=== PATIENT | female | born 1950 | race Caucasian/White ===

== ENCOUNTER 2017-02-23 06:06 | Day surgery (SDC) | payer OTHER, BC, MEDICARE ==
[2017-02-23] MEDS ORDERED: LIDOCAINE 4% (MPF) 5 ML INJ (06:53)
[2017-02-23] MEDS ORDERED: CEFAZOLIN 1 GM INJ (06:53)
[2017-02-23] MEDS ORDERED: EPINEPHrine 1 MG INJ (06:54)
[2017-02-23] MEDS ORDERED: GENTAMICIN 80 MG INJ (06:54)
[2017-02-23] MEDS ORDERED: DEXAMETHASONE 4 MG/ML 1 ML INJ (06:54)
[2017-02-23] MEDS ORDERED: CARBACHOL 0.01% 1.5 ML OPH INJ (06:54)
[2017-02-23] MEDS ORDERED: SOD CHLORIDE 0.9% 1,000 ML IV (07:30)
[2017-02-23] MEDS ORDERED: DICLOFENAC 0.1% 2.5 ML OPH OPER (07:30)
[2017-02-23] MEDS: TROPICAMIDE 1% 3 ML OPH OPER (07:48)
[2017-02-23] MEDS: MOXIFLOXACIN 0.5% 3 ML OPH OPER (07:48)
[2017-02-23] MEDS: CYCLOPENTOLATE/PHENYLEPH 2 ML OPH OPER (07:48)
[2017-02-23] MEDS: hydrALAzine 20 MG INJ IV ×3 (07:58→08:36)
[2017-02-23] MEDS: BROMFENAC SODIUM 1.7 ML OPH DROP OPER (08:00)
[2017-02-23] MEDS: DEXAMETHASONE 4 MG/ML 1 ML INJ INJ (10:15)
[2017-02-23] MEDS: CARBACHOL 0.01% 1.5 ML OPH INJ IO (10:15)
[2017-02-23] MEDS: CEFAZOLIN 1 GM INJ INJ (10:15)
== END 2017-02-23 11:54 | disposition home or self-care (01) ==
LOC: SDS 06:06
DX: H25.12 Age-related nuclear cataract, left eye (principal); E11.9 Type 2 diabetes mellitus without complications; I10 Essential (primary) hypertension; E66.9 Obesity, unspecified; Z68.28 Body mass index [BMI] 28.0-28.9, adult
CPT/HCPCS: 66984; 82962

== ENCOUNTER 2018-07-16 09:52 | Inpatient (IN) | payer OTHER, BC ==
[2018-07-16 11:01] LABS: ADD MAN DIFF? NO
[2018-07-16 11:04] LABS: WHITE BLOOD COUNT 10.8 10^3/ul (4.8-10.8)
[2018-07-16 11:04] LABS: BASOPHIL # 0.2 10^3/ul (0.0-0.1); BASOPHILS % 1.5 % (0.0-2.0); EOSINOPHILS % 18.2 % (0.0-7.0); HEMATOCRIT 45.2 % (37.0-47.0); HEMOGLOBIN 14.4 g/dl (12.0-16.0); LYMPHOCYTES # 2.6 10^3/ul (0.8-2.9); LYMPHOCYTES % 23.5 % (15.0-51.0); MEAN CORPUSCULAR HEMOGLOBIN 27.1 pg (29.0-33.0); MEAN CORPUSCULAR HGB CONC 31.9 g/dl (32.0-37.0); MEAN PLATELET VOLUME 12.1 fl (7.4-10.4); MONOCYTE # 0.8 10^3/ul (0.3-0.9); MONOCYTES % 7.7 % (0.0-11.0); NEUTROPHIL # 5.3 10^3/ul (1.6-7.5); NEUTROPHILS % 48.8 % (39.0-77.0); PLATELET COUNT 247 10^3/UL (140-415); RED BLOOD COUNT 5.32 10^6/ul (4.20-5.40); RED CELL DISTRIBUTION WIDTH 13.1 % (11.5-14.5)
[2018-07-16 11:09] LABS: ALANINE AMINOTRANSFERASE 26 IU/L (13-69); ALBUMIN 4.6 g/dl (3.3-4.9); ALBUMIN/GLOBULIN RATIO 1.35; ALKALINE PHOSPHATASE 105 IU/L (42-121); AMYLASE 68 U/L (11-123); ANION GAP 11 (5-13); ASPARTATE AMINO TRANSFERASE 36 IU/L (15-46); BILIRUBIN,INDIRECT 0.6 mg/dl (0-1.1); BILIRUBIN,TOTAL 0.6 mg/dl (0.2-1.3); BLOOD UREA NITROGEN 14 mg/dl (7-20); CALCIUM 9.4 mg/dl (8.4-10.2); CARBON DIOXIDE 28 mmol/L (21-31); CHLORIDE 104 mmol/L (97-110); CREATININE 0.48 mg/dl (0.44-1.00); Estimated GFR > 60 mL/min (>60); GLUCOSE 181 mg/dl (70-220); LIPASE 83 U/L (23-300); POTASSIUM 4.2 mmol/L (3.5-5.1); SODIUM 143 mmol/L (135-144)
[2018-07-16 11:20] LABS: TROPONIN-I < 0.012 ng/ml (0.000-0.120)
[2018-07-16] MEDS: ONDANSETRON 4 MG INJ IV (11:21)
[2018-07-16] MEDS: morphine 4 MG/ML VIAL IV (11:21)
[2018-07-16] MEDS: LABETALOL HCL 20MG INJ IV (11:22)
[2018-07-16 11:28] LABS: INR 1.05; PROTIME 13.8 Sec (11.9-14.9); PT RATIO 1.1
[2018-07-16 13:25] LABS: ADD UMIC YES; UR ASCORBIC ACID NEGATIVE (NEGATIVE); UR BILIRUBIN (Dip) NEGATIVE (NEGATIVE); UR BLOOD (Dip) NEGATIVE (NEGATIVE); UR CLARITY CLEAR (CLEAR); UR COLOR YELLOW (YELLOW); UR GLUCOSE (Dip) NEGATIVE (NEGATIVE); UR KETONES (Dip) NEGATIVE (NEGATIVE); UR LEUKOCYTE ESTERASE (Dip) TRACE Leu/ul (NEGATIVE); UR NITRITE (Dip) NEGATIVE (NEGATIVE); UR RBC 0 /HPF (0-5); UR SPECIFIC GRAVITY (Dip) 1.011 (1.003-1.030); UR SQUAMOUS EPITHELIAL CELL FEW /HPF (FEW); UR TOTAL PROTEIN (Dip) NEGATIVE (NEGATIVE); UR UROBILINOGEN (Dip) NEGATIVE (NEGATIVE); UR WBC 1 /HPF (0-5)
[2018-07-16] MEDS ORDERED: ONDANSETRON 4 MG INJ IV ×2 (14:30→15:30)
[2018-07-16] MEDS ORDERED: ACETAMINOPHEN 325 MG TAB PO (14:30)
[2018-07-16] MEDS ORDERED: NACL 0.9% 3 ML SYG IV (15:30)
[2018-07-16] MEDS ORDERED: GLUCOSE GEL 15 GRAM TUBE BUCCAL (16:00)
[2018-07-16] MEDS ORDERED: DEXTROSE 50% 50 ML SYRINGE IV ×2 (16:00)
[2018-07-16] MEDS ORDERED: GLUCAGON 1 MG INJ IM (16:00)
[2018-07-16] MEDS ORDERED: GLUCOSE GEL 15 GRAM TUBE PO ×2 (16:00)
[2018-07-16 16:22] LABS: FREE T4 (FREE THYROXINE) 1.06 ng/dl (0.78-2.44)
[2018-07-16] MEDS: hydrALAzine 20 MG INJ IV ×2 (17:00→22:31)
[2018-07-16 18:13] LABS: AMPHETAMINE/METHAMPHETAMINE Negative (NEGATIVE); BARBITURATES Negative (NEGATIVE); BENZODIAZEPINES Negative (NEGATIVE); CANNABINOIDS Negative (NEGATIVE); COCAINE Negative (NEGATIVE); OPIATES Negative (NEGATIVE)
[2018-07-16] MEDS: INSULIN ASPART [NOVOLOG] 3 ML PEN SC ×3 (18:47→20:06)
[2018-07-16] MEDS: INSULIN GLARGINE [LANTus] (100 UNITS/ML) SYG SC (20:05)
[2018-07-16] MEDS: ATORVASTATIN 40 MG TAB PO (20:34)
[2018-07-16] MEDS: LOSARTAN 25 MG TAB PO (20:34)
[2018-07-17 06:18] LABS: ADD MAN DIFF? NO
[2018-07-17 06:20] LABS: WHITE BLOOD COUNT 14.8 10^3/ul (4.8-10.8)
[2018-07-17 06:20] LABS: BASOPHIL # 0.1 10^3/ul (0.0-0.1); BASOPHILS % 0.9 % (0.0-2.0); EOSINOPHILS % 13.2 % (0.0-7.0); HEMATOCRIT 43.1 % (37.0-47.0); HEMOGLOBIN 13.7 g/dl (12.0-16.0); LYMPHOCYTES % 13.7 % (15.0-51.0); MEAN CORPUSCULAR HEMOGLOBIN 27.3 pg (29.0-33.0); MEAN CORPUSCULAR HGB CONC 31.8 g/dl (32.0-37.0); MEAN PLATELET VOLUME 12.3 fl (7.4-10.4); MONOCYTE # 0.8 10^3/ul (0.3-0.9); MONOCYTES % 5.5 % (0.0-11.0); NEUTROPHIL # 9.8 10^3/ul (1.6-7.5); NEUTROPHILS % 66.2 % (39.0-77.0); PLATELET COUNT 238 10^3/UL (140-415); RED BLOOD COUNT 5.01 10^6/ul (4.20-5.40); RED CELL DISTRIBUTION WIDTH 13.4 % (11.5-14.5)
[2018-07-17 06:54] LABS: PHOSPHORUS 3.3 mg/dl (2.5-4.9)
[2018-07-17 07:07] LABS: ALANINE AMINOTRANSFERASE 26 IU/L (13-69); ALBUMIN 4.2 g/dl (3.3-4.9); ALBUMIN/GLOBULIN RATIO 1.35; ALKALINE PHOSPHATASE 90 IU/L (42-121); ANION GAP 7 (5-13); ASPARTATE AMINO TRANSFERASE 29 IU/L (15-46); BILIRUBIN,INDIRECT 0.5 mg/dl (0-1.1); BILIRUBIN,TOTAL 0.5 mg/dl (0.2-1.3); BLOOD UREA NITROGEN 16 mg/dl (7-20); CALCIUM 9.1 mg/dl (8.4-10.2); CARBON DIOXIDE 30 mmol/L (21-31); CHLORIDE 104 mmol/L (97-110); Estimated GFR > 60 mL/min (>60); GLUCOSE 211 mg/dl (70-220); POTASSIUM 3.9 mmol/L (3.5-5.1); SODIUM 141 mmol/L (135-144); TOTAL PROTEIN 7.3 g/dl (6.1-8.1)
[2018-07-17 07:18] LABS: CHOLESTEROL 122 mg/dl (100-200)
[2018-07-17 07:18] LABS: CHOL/HDL RATIO 2.3 RATIO; HDL CHOLESTEROL 52 mg/dl (33-92); LDL CHOLESTEROL,CALCULATED 47 mg/dl; TRIGLYCERIDES 115 mg/dl (0-149)
[2018-07-17] MEDS: LEVOTHYROXINE 50 MCG TAB PO (08:07)
[2018-07-17] MEDS: LORATADINE 10 MG TAB PO (08:07)
[2018-07-17] MEDS: hydrALAzine 20 MG INJ IV ×2 (08:08→16:51)
[2018-07-17] MEDS: LOSARTAN 25 MG TAB PO ×2 (08:08→11:39)
[2018-07-17] MEDS: ASPIRIN 81 MG TAB PO (08:08)
[2018-07-17] MEDS: INSULIN ASPART [NOVOLOG] 3 ML PEN SC ×7 (08:15→20:03)
[2018-07-17] MEDS: ENOXAPARIN 40 MG/0.4 ML SYG SC (08:15)
[2018-07-17] MEDS ORDERED: ACETAMINOPHEN 500 MG TAB PO (11:00)
[2018-07-17 11:36] LABS: HEMOGLOBIN A1C 7.5 % (0-5.9)
[2018-07-17 12:29] LABS: AMMONIA < 9 umol/l (9-30)
[2018-07-17] MEDS: INSULIN GLARGINE [LANTus] (100 UNITS/ML) SYG SC (19:57)
[2018-07-17] MEDS: LOSARTAN 50 MG TAB PO (20:18)
[2018-07-17] MEDS: ATORVASTATIN 40 MG TAB PO (20:18)
[2018-07-18 06:12] LABS: ADD MAN DIFF? NO
[2018-07-18 06:22] LABS: WHITE BLOOD COUNT 12.9 10^3/ul (4.8-10.8)
[2018-07-18 06:22] LABS: ABNORMAL IP MESSAGE 1; BASOPHIL # 0.2 10^3/ul (0.0-0.1); BASOPHILS % 1.3 % (0.0-2.0); EOSINOPHILS # 2.6 10^3/ul (0.0-0.5); HEMATOCRIT 40.6 % (37.0-47.0); HEMOGLOBIN 13.2 g/dl (12.0-16.0); LYMPHOCYTES % 31.2 % (15.0-51.0); MEAN CORPUSCULAR HEMOGLOBIN 27.9 pg (29.0-33.0); MEAN CORPUSCULAR HGB CONC 32.5 g/dl (32.0-37.0); MEAN CORPUSCULAR VOLUME 85.8 fl (82.0-101.0); MEAN PLATELET VOLUME 11.7 fl (7.4-10.4); MONOCYTES % 7.8 % (0.0-11.0); NEUTROPHIL # 5.1 10^3/ul (1.6-7.5); NEUTROPHILS % 39.5 % (39.0-77.0); PLATELET COUNT 231 10^3/UL (140-415); RED BLOOD COUNT 4.73 10^6/ul (4.20-5.40); RED CELL DISTRIBUTION WIDTH 13.3 % (11.5-14.5)
[2018-07-18 06:34] LABS: POSITIVE DIFF @See below
[2018-07-18 06:40] LABS: PHOSPHORUS 3.7 mg/dl (2.5-4.9)
[2018-07-18 06:40] LABS: MAGNESIUM 2.1 mg/dl (1.7-2.5)
[2018-07-18 06:45] LABS: ANION GAP 8 (5-13); BLOOD UREA NITROGEN 14 mg/dl (7-20); CALCIUM 9.2 mg/dl (8.4-10.2); CARBON DIOXIDE 27 mmol/L (21-31); CHLORIDE 106 mmol/L (97-110); Estimated GFR > 60 mL/min (>60); GLUCOSE 183 mg/dl (70-220); POTASSIUM 3.8 mmol/L (3.5-5.1); SODIUM 141 mmol/L (135-144)
[2018-07-18] MEDS: LOSARTAN 50 MG TAB PO (08:05)
[2018-07-18] MEDS: ASPIRIN 81 MG TAB PO (08:05)
[2018-07-18] MEDS: LORATADINE 10 MG TAB PO (08:05)
[2018-07-18] MEDS: LEVOTHYROXINE 50 MCG TAB PO (08:05)
[2018-07-18] MEDS: ENOXAPARIN 40 MG/0.4 ML SYG SC (08:06)
[2018-07-18] MEDS: INSULIN ASPART [NOVOLOG] 3 ML PEN SC ×4 (08:07→11:36)
[2018-07-18] MEDS: hydrALAzine 20 MG INJ IV ×2 (11:32→13:03)
== END 2018-07-18 17:25 | disposition home health service (06) | DRG 71 ==
LOC: E/R 09:52 → 6WM 14:07
DX: G93.40 Encephalopathy, unspecified (principal); I16.1 Hypertensive emergency; I10 Essential (primary) hypertension; E78.5 Hyperlipidemia, unspecified; E03.9 Hypothyroidism, unspecified; E11.9 Type 2 diabetes mellitus without complications; R51 Headache; I65.1 Occlusion and stenosis of basilar artery; I65.21 Occlusion and stenosis of right carotid artery; D72.829 Elevated white blood cell count, unspecified; Z86.73 Personal history of transient ischemic attack (TIA), and cerebral infarction without residual deficits
CPT/HCPCS: 70450; 70544; 70551; 71045; 80048; 80053; 80061; 80307; 81001; 82140; 82150; 82607; 82962; 83036; 83690; 83735; 84100; 84439; 84443; 84484; 85025; 85610; 85730; 87040-91; 87086; 93005; 93306; 93880; 96374; 96375; 97162; 99285-25

== ENCOUNTER 2018-08-04 06:12 | Day surgery (SDC) | payer OTHER ==
[2018-08-04] MEDS ORDERED: PROPOFOL 40 ML (07:44)
[2018-08-04] MEDS ORDERED: LIDOCAINE 2% (SDV) 5 ML INJ (07:44)
== END 2018-08-04 15:44 | disposition home or self-care (01) ==
LOC: GIL 06:12
DX: Z12.11 Encounter for screening for malignant neoplasm of colon (principal); D12.5 Benign neoplasm of sigmoid colon; K64.8 Other hemorrhoids; K57.90 Diverticulosis of intestine, part unspecified, without perforation or abscess without bleeding; K21.0 Gastro-esophageal reflux disease with esophagitis
CPT/HCPCS: 43239; 88305; 88312